=== PATIENT | female | born 1975 | race Caucasian/White ===

== ENCOUNTER 2021-02-16 20:12 | Emergency (ER) | payer OTHER ==
[~2021-02-16 20:12] MED LIST: CIPRO500 MG PO; PREDNISONE 20MG20 MG PO; PROMETHAZINE-D118 ML PO; ZOFRAN8 MG PO; ZYRTEC10 M3 PO
[2021-02-16 20:39] LABS: BASOPHIL 0.6 % (0-2); EOSINOPHIL 2.2 % (0-5); HCT 52.2 % (37.0-47.0); HGB 17.7 g/dl (12.5-16.0); LYMPHOCYTE 21.6 % (15-48); MCH 31.3 pg (25.0-31.0); MCHC 33.9 g/dL (32.0-36.0); MCV 92.2 fL (78.0-100.0); MONOCYTE 5.7 % (0-12); MPV 10.9 fL (6.0-9.5); NEUTROPHIL 69.7 % (41-80); NRBC 0; PLT 245 K/uL (150-400); RBC 5.66 M/uL (4.20-5.40); RDW 13.4 % (11.5-14.0); WBC 12.5 K/uL (4.0-10.5)
[2021-02-16 21:17] LABS: ALBUMIN 3.8 g/dL (3.4-5.0); ALKALINE PHOSHATASE 58 U/L (46-116); ALT 18 U/L (14-59); AST 20 U/L (15-37); BILIRUBIN - TOTAL 0.4 mg/dL (0.2-1.0); BUN 13 mg/dL (7-18); BUN/CREAT RATIO (CALC) 11.7 RATIO; CHLORIDE 103 mmol/L (98-107); CO2 (BICARBONATE) 25 mmol/L (21-32); CREATININE 1.11 mg/dL (0.51-0.95); GLOBULIN (CALCULATION) 3.4 g/dL; GLUCOSE 99 mg/dL (74-106); POTASSIUM 4.1 mmol/L (3.5-5.1); TOTAL PROTEIN 7.2 g/dL (6.4-8.2)
[2021-02-16 23:17] LABS: AMPHETAMINES NEGATIVE (NEGATIVE); BARBITURATES NEGATIVE (NEGATIVE); ECSTASY (MDMA) NEGATIVE (NEGATIVE); MARIJUANA (THC) NEGATIVE (NEGATIVE); METHADONE NEGATIVE (NEGATIVE); OPIATES POSITIVE (NEGATIVE); OXYCODONE NEGATIVE (NEGATIVE)
[2021-02-17] MEDS ORDERED: 24HR ALLERGY REL5 MG PO (01:00)
[2021-02-17] MEDS ORDERED: PREDNISONE 20MG20 MG PO (01:00)
== END 2021-02-17 01:10 | disposition home or self-care (01) ==
LOC: FER 20:12
PROVIDERS: Internal Medicine
DX: R07.89 Other chest pain (principal); S00.83XA Contusion of other part of head, initial encounter; L50.9 Urticaria, unspecified; D75.1 Secondary polycythemia; F17.210 Nicotine dependence, cigarettes, uncomplicated; Z88.5 Allergy status to narcotic agent; Z20.822 Contact with and (suspected) exposure to COVID-19; W19.XXXA Unspecified fall, initial encounter
CPT/HCPCS: 36415; 71275; 80053; 80305; 84443; 84484; 85025; 85379; 93005; G0480; J1170; J2270; J2405; Q9967; U0002